=== PATIENT | male | born 1990 | race Caucasian/White ===

== ENCOUNTER 2021-10-18 14:14 | Day surgery (SDC) | payer OTHER ==
[2021-10-18] MEDS ORDERED: LIDOCAINE HCL 2% 100 MG/5 ML IJ ONE (17:00)
[2021-10-18] MEDS ORDERED: DIPRIVAN 200 MG/20 ML IV ONE (17:21)
[2021-10-18] MEDS ORDERED: Lactated Ringers 1,000 ML IV ONE (18:34)
--- NOTE | 2021-10-18 20:37 | XRAY ---
Indication: Left L4-S1 MBB. Intraoperative fluoroscopy provided for 9 seconds. Single digital spot image submitted for interpretation demonstrates posterior needle tips projecting over the expected left L4-S1 nerve roots. Correlate with intraoperative findings/report.
--- NOTE | 2021-10-19 08:57 | XRAY ---
9 seconds fluoroscopy time in surgery for left L4-S1 MBB>
== END 2021-10-18 17:45 | disposition home or self-care (01) ==
LOC: SDC-PAIN 14:14
PROVIDERS: ATTEND Psychiatry & Neurology Pain Medicine
DX: M47.816 Spondylosis without myelopathy or radiculopathy, lumbar region (principal); I10 Essential (primary) hypertension; Z79.899 Other long term (current) drug therapy
CPT/HCPCS: 64493; 64494; 72020; 77002; J2704

== ENCOUNTER 2021-12-06 08:33 | Day surgery (SDC) | payer OTHER ==
[2021-12-06] MEDS ORDERED: BUPIVACAINE 0.5% VIAL IJ ONE (08:34)
[2021-12-06] MEDS ORDERED: Lactated Ringers 1,000 ML IV ONE (09:22)
[2021-12-06] MEDS ORDERED: DIPRIVAN 200 MG/20 ML IV ONE (10:04)
--- NOTE | 2021-12-06 11:36 | XRAY ---
7 seconds fluoroscopy time in surgery for left L4-S1 MBB.
--- NOTE | 2021-12-06 11:39 | XRAY ---
Indication: Left L4-S1 MBB. Intraoperative fluoroscopy provided for 7 seconds. Single digital spot image submitted for interpretation demonstrates posterior needle tips projecting over the left L3-L5 nerve roots. Correlate with intraoperative findings/report.
== END 2021-12-06 10:28 | disposition home or self-care (01) ==
LOC: SDC-PAIN 08:33
PROVIDERS: ATTEND Psychiatry & Neurology Pain Medicine
DX: M47.816 Spondylosis without myelopathy or radiculopathy, lumbar region (principal); I10 Essential (primary) hypertension; Z79.899 Other long term (current) drug therapy
CPT/HCPCS: 64493; 64494; 72020; 77002; J2704

== ENCOUNTER 2022-01-17 10:40 | Day surgery (SDC) | payer OTHER ==
[2022-01-17] MEDS ORDERED: XYLOCAINE-MPF 1% 5ML SDV IJ ONE (10:41)
[2022-01-17] MEDS ORDERED: Lactated Ringers 1,000 ML IV ONE (10:41)
[2022-01-17] MEDS ORDERED: Marcaine Mpf 0.5% Vial 30 Ml IJ ONE (10:41)
[2022-01-17] MEDS ORDERED: Depo-Medrol 40 MG/ML IM ONE (10:41)
[2022-01-17] MEDS ORDERED: Xylocaine-Mpf 2% 5 Ml Vial ONE (12:20)
[2022-01-17] MEDS ORDERED: DIPRIVAN 200 MG/20 ML IV ONE (12:20)
--- NOTE | 2022-01-17 13:20 | XRAY ---
Indication: Left L4-S1 RFA. Intraoperative fluoroscopy provided for 15 seconds. 3 digital spot image submitted for interpretation demonstrates posterior needle tips projecting over the expected left L4-S1 nerve roots. Correlate with intraoperative findings/report.
--- NOTE | 2022-01-17 13:22 | XRAY ---
15 seconds fluoroscopy time in surgery for left L4-S1 RFA.
== END 2022-01-17 12:49 | disposition home or self-care (01) ==
LOC: SDC-PAIN 10:40
PROVIDERS: ATTEND Psychiatry & Neurology Pain Medicine
DX: M47.816 Spondylosis without myelopathy or radiculopathy, lumbar region (principal); I10 Essential (primary) hypertension; Z79.899 Other long term (current) drug therapy
CPT/HCPCS: 64635; 64636; 72100; 77002; J1030; J2704

== ENCOUNTER 2022-06-20 13:28 | Day surgery (SDC) | payer OTHER ==
[2022-06-20] MEDS ORDERED: LIDOCAINE HCL 2% 100 MG/5 ML IJ ONE (13:29)
[2022-06-20] MEDS ORDERED: DIPRIVAN 200 MG/20 ML IV ONE (15:44)
[2022-06-20] MEDS ORDERED: Lactated Ringers 1,000 ML IV ONE (16:44)
--- NOTE | 2022-06-20 16:53 | XRAY ---
Indication: Right L4-S1 MBB. Intraoperative fluoroscopy provided for 8 seconds. Single digital spot image submitted for interpretation demonstrates posterior needle tips projecting over the expected right L4-S1 nerve roots. Correlate with intraoperative findings/report.
--- NOTE | 2022-06-20 17:30 | XRAY ---
8 seconds of fluoroscopy was used in surgery for a right L4-S1 MBB.
== END 2022-06-20 16:20 | disposition home or self-care (01) ==
LOC: SDC-PAIN 13:28
PROVIDERS: ATTEND Psychiatry & Neurology Pain Medicine
DX: M47.816 Spondylosis without myelopathy or radiculopathy, lumbar region (principal); Z79.899 Other long term (current) drug therapy
CPT/HCPCS: 64493; 64494; 72020; 77002; J2704

== ENCOUNTER 2022-09-19 09:47 | Day surgery (SDC) | payer OTHER ==
[2022-09-19] MEDS ORDERED: BUPIVACAINE 0.5% VIAL IJ ONE (09:48)
[2022-09-19] MEDS ORDERED: Zofran 4 MG/2 ML VIAL ONE (11:06)
[2022-09-19] MEDS ORDERED: DIPRIVAN 200 MG/20 ML IV ONE ×2 (11:55→12:01)
[2022-09-19] MEDS ORDERED: BACIGUENT 30 GM ONE (12:03)
[2022-09-19] MEDS ORDERED: Lactated Ringers 1,000 ML IV ONE (13:18)
--- NOTE | 2022-09-19 14:34 | XRAY ---
Indication: Right L4-S1 MBB. Intraoperative fluoroscopy provided for 13 seconds. Single digital spot image submitted for interpretation demonstrates posterior needle tips projecting over the expected right L4-S1 nerve roots. Correlate with intraoperative findings/report.
--- NOTE | 2022-09-19 14:49 | XRAY ---
13 seconds fluoroscopy time in surgery for right L4-S1 MBB.
== END 2022-09-19 12:30 | disposition home or self-care (01) ==
LOC: SDC-PAIN 09:47
PROVIDERS: ATTEND Psychiatry & Neurology Pain Medicine
DX: M47.816 Spondylosis without myelopathy or radiculopathy, lumbar region (principal); Z79.899 Other long term (current) drug therapy
CPT/HCPCS: 64493; 64494; 72020; 77002; J2405; J2704; A9270-GY

== ENCOUNTER 2022-10-10 14:13 | Day surgery (SDC) | payer OTHER ==
[2022-10-10] MEDS ORDERED: LIDOCAINE HCL 1% 50 MG/5 ML VL PF IJ ONE (14:14)
[2022-10-10] MEDS ORDERED: BUPIVACAINE 0.5% VIAL IJ ONE (14:14)
[2022-10-10] MEDS ORDERED: Depo-Medrol 40 MG/ML IM ONE (14:14)
[2022-10-10] MEDS ORDERED: Zofran 4 MG/2 ML VIAL ONE (15:30)
[2022-10-10] MEDS ORDERED: DIPRIVAN 200 MG/20 ML IV ONE (16:11)
[2022-10-10] MEDS ORDERED: Versed 2 MG/2 ML Injection ONE (16:14)
[2022-10-10] MEDS ORDERED: Lactated Ringers 1,000 ML IV ONE (16:47)
--- NOTE | 2022-10-10 19:10 | XRAY ---
Indication: Right L4-S1 RFA. Intraoperative fluoroscopy provided for 21 seconds. 6 digital spot image submitted for interpretation demonstrates posterior needle tips projecting over the expected right L4-S1 nerve roots. Correlate with intraoperative findings/report.
--- NOTE | 2022-10-11 08:37 | XRAY ---
21 seconds of fluoroscopy was used in surgery for a right L4-S1 RFA.
== END 2022-10-10 16:45 | disposition home or self-care (01) ==
LOC: SDC-PAIN 14:13
PROVIDERS: ATTEND Psychiatry & Neurology Pain Medicine
DX: M47.816 Spondylosis without myelopathy or radiculopathy, lumbar region (principal); Z79.899 Other long term (current) drug therapy
CPT/HCPCS: 64635; 64636; 72100; 77002; J1030; J2001; J2250; J2405; J2704